=== PATIENT | male | born 1985 | race American Indian/Alaskan Native ===

== ENCOUNTER 2021-04-09 23:54 | Emergency (ER) | payer MEDICAID ==
[~2021-04-09] VITALS: Ht 177.8 cm; Wt 90.7 kg
--- NOTE | 2021-04-10 00:10 | NUR ---
Dr. Ngo at bedside for MSE.
--- NOTE | 2021-04-10 00:18 | NUR ---
Patient discharged to home in stable condition. Written and verbal after care instructions given. Patient verbalizes understanding of instructions. Stressed follow up or return to ER for worsening s/s. Patient out of ER with steady gait, no acute signs of distress, VSS, all belongings taken.
[2021-04-10 00:19] VITALS: BP 118/78
== END 2021-04-10 00:19 | disposition home or self-care (01) ==
LOC: ER 23:58
DX: L73.9 Follicular disorder, unspecified (principal); Z88.0 Allergy status to penicillin; J45.909 Unspecified asthma, uncomplicated
CPT/HCPCS: A4663